=== PATIENT | female | born 1945 | race Caucasian/White ===

== ENCOUNTER 2017-10-10 08:04 | Day surgery (SDC) | payer MEDICARE, MEDICAID ==
[~2017-10-10 08:04] MED LIST: BUPIVACAINE HCL 0.75% INJ/PF (7.5 MG/1 ML) 10 ML SDV OD PRN; KETOROLAC TROMETHAMINE 0.45% 4 DROP/0.4 ML DROPERETTE OD PRN; LIDOCAINE 4% INJ/PF (40 MG/ML) 5 ML AMPUL OD PRN
[2017-10-10] MEDS ORDERED: EPINEPHRINE INJ/PF 1 MG/1 ML AMPULE ONE (08:23)
[2017-10-10] MEDS ORDERED: CHONDR SU A NA/HYALUR INTRAOC KIT (SURGICARE) ONE (08:23)
[2017-10-10] MEDS: TROPICAMIDE 1% OPH SOLN 3 ML OD PRN ×3 (08:26→08:55)
[2017-10-10] MEDS: CYCLOPENTOLATE 0.2%/PHENYLEPHRINE 1% OPH SOLN 2 ML OD PRN ×3 (08:26→08:55)
[2017-10-10] MEDS: BESIFLOXACIN HCL 0.6% OPH SUSP 5 ML BOTTLE OD PRN ×4 (08:27→09:44)
[2017-10-10] MEDS: TETRACAINE HCL 0.5% OPH SOLN 0.6 ML DROPERETTE OD PRN ×2 (08:28→09:01)
[2017-10-10] MEDS ORDERED: MIDAZOLAM 2 MG/2 ML INJ ONE (09:09)
[2017-10-10] MEDS ORDERED: FENTANYL CITRATE INJ/PF 100 MCG/2 ML AMPUL ONE (09:09)
[2017-10-10] MEDS ORDERED: ONDANSETRON HCL INJ/PF 4 MG/2 ML SDV ONE (09:09)
--- NOTE | 2017-10-10 10:10 | [facility] OPERATIVE REPORT E ---
[facility] Operative Report NAME: LATOSHA CHAUHAN AGE: 72Y DATE OF SURGERY: 10/10/2017 ROOM: PREOPERATIVE DIAGNOSIS: CATARACT, RIGHT EYE. POSTOPERATIVE DIAGNOSIS: CATARACT, RIGHT EYE. PROCEDURE PERFORMED: Phacoemulsification with posterior chamber intraocular lens, right eye. SURGEON: Jessica Valle MD ANESTHESIA: Topical with MAC. INDICATIONS FOR SURGERY: Difficulty driving. Increased glare. Best corrected visual acuity 20/60. DESCRIPTION OF PROCEDURE: The patient was brought to the operating room and placed on the operative table. Following tetracaine drops, topical anesthesia was administered. This consisted of instrument wipe pledgets soaked in a solution of 4% Xylocaine mixed with 0.75% Marcaine in a 1:2 ratio. A 2 x 1 cm pledget was placed in the superior fornix. A 1 x 1 cm pledget was placed in the inferior fornix. The eye was patched shut for 5 minutes. The patch was removed. The eye was sterilely prepped and draped in the usual manner. Lid speculum was placed in the eye. The pledgets were removed, 4-0 black silk sutures were placed around the superior and the inferior rectus muscles to be used as traction. A conjunctival peritomy was made at the 10 o'clock position. Hemostasis was obtained with bipolar cautery. A posterior limbal groove was created using a crescent knife and dissected anteriorly towards the cornea. A sharp point blade was used to create a paracentesis site at the 2 o'clock position. A 2.4 mm keratome was used to enter the anterior chamber through the groove. Viscoelastic was injected into the anterior chamber. An anterior capsulotomy was performed using Utrata forceps in a capsulorrhexis fashion. Hydrodissection and hydrodelineation were performed. Phacoemulsification was performed in dxmauv-aum-ibrduym technique. A total of 50 seconds of total phaco time was used. Following this, the I/A unit was used to remove residual cortex. Viscoelastic was injected into the capsular bag. Intraocular lens Model [id number], 24.5 diopters, serial number [id number], was placed in the capsular bag. The I/A unit was used to remove residual viscoelastic. The wound was seen to be watertight under high and low pressure, and no sutures were placed. The intraocular lens was well centered. The pressure was adjusted in the eye to normal pressure. The 4-0 black silk sutures and lid speculum were removed. The eye was shielded after Besivance drops were placed. The patient tolerated the procedure well and was sent to the recovery room in good condition. DICTATING PHYSICIAN: JESSICA VALLE M.D. [id number] PHY#: [id number] ID: [id number] JOB#: [id number] ACCT: [id number] cc:JESSICA VALLE M.D. >
--- NOTE | 2017-10-10 10:13 | [facility] DISCHARGE SUMMARY E ---
[facility] Discharge Summary NAME: LATOSHA CHAUHAN AGE: 72Y ADMITTED: 10/10/2017 DISCHARGED: 10/10/2017 HOSPITAL COURSE: The patient is a 72-year-old lady who underwent uneventful cataract extraction with intraocular lens implant, right eye, on 10/10/2017. She will be discharged to home. DISCHARGE INSTRUCTIONS: She is instructed to resume preoperative medications; to take Tylenol as needed for discomfort; to keep her eye shielded; to use Besivance, Durezol and Ilevro at 3:00 p.m. and 8:00 p.m.; and to follow up in my office in 1 day. DICTATING PHYSICIAN: JESSICA VALLE M.D. [id number] PHY#: [id number] ID: [id number] JOB#: [id number] ACCT: [id number] cc:JESSICA VALLE M.D. >
== END 2017-10-10 10:37 | disposition home or self-care (01) ==
LOC: SC 08:04
PROVIDERS: ATTEND Ophthalmology
PROC: 08RJ3JZ Replacement of Right Lens with Synthetic Substitute, Percutaneous Approach (ICD-10-PCS; principal; 2017-10-10 09:30)
DX: H25.811 Combined forms of age-related cataract, right eye (principal); E11.3293 Type 2 diabetes mellitus with mild nonproliferative diabetic retinopathy without macular edema, bilateral; H43.811 Vitreous degeneration, right eye; Z96.1 Presence of intraocular lens; E78.00 Pure hypercholesterolemia, unspecified; I10 Essential (primary) hypertension; E03.9 Hypothyroidism, unspecified; Z87.891 Personal history of nicotine dependence; Z88.6 Allergy status to analgesic agent; Z79.84 Long term (current) use of oral hypoglycemic drugs; Z79.899 Other long term (current) drug therapy; Z79.82 Long term (current) use of aspirin
CPT/HCPCS: 82962; 66984; V2632; J2250; J3490 ×3; A9270; J0171; J3010; J2405; 142

== ENCOUNTER → 2019-10-21 | Outpatient (CLI) | payer MEDICARE, MEDICAID ==
[2019-10-21 15:33] LABS: ABSOLUTE EOSINOPHILS # (AUTO) 0.1 10^3/uL (0.0-0.6); ABSOLUTE LYMPHOCYTES (AUTO) 1.2 10^3/uL (0.5-4.7); ABSOLUTE MONOCYTES (AUTO) 1.5 10^3/uL (0.1-1.4); ABSOLUTE NEUT (AUTO) 9.8 10^3/uL (1.7-8.2); BASOPHILS % (AUTO) 0.3 % (0-2); EOSINOPHILS % (AUTO) 0.4 % (0-6); HEMATOCRIT 32.5 % (36.0-47.0); HEMOGLOBIN 10.9 g/dL (12.0-15.5); LYMPHOCYTES % (AUTO) 9.6 % (13-45); MEAN CORPUSCULAR HEMOGLOBIN 31.8 pg (27.0-33.4); MEAN CORPUSCULAR HGB CONC 33.6 g/dL (32.0-36.0); MEAN CORPUSCULAR VOLUME 95 fl (80-97); MONOCYTES % (AUTO) 11.5 % (3-13); PLATELET COUNT 259 10^3/uL (150-450); RED BLOOD COUNT 3.44 10^6/uL (3.72-5.28); RED CELL DISTRIBUTION WIDTH 12.6 % (11.5-14.0); SEGMENTED NEUTROPHILS % (AUTO) 78.2 % (42-78); TOTAL CELLS COUNTED % (AUTO) 100 %; WHITE BLOOD COUNT 12.6 10^3/uL (4.0-10.5)
[2019-10-21 15:45] LABS: ALBUMIN 4.1 g/dL (3.5-5.0); ALKALINE PHOSPHATASE 91 U/L (38-126); ANION GAP 12 (5-19); ASPARTATE AMINO TRANSFERASE 28 U/L (14-36); BILIRUBIN,DIRECT 0.3 mg/dL (0.0-0.4); BILIRUBIN,TOTAL 0.7 mg/dL (0.2-1.3); BLOOD UREA NITROGEN 30 mg/dL (7-20); CALCIUM 9.7 mg/dL (8.4-10.2); CARBON DIOXIDE 24 mmol/L (22-30); CHLORIDE 99 mmol/L (98-107); GLUCOSE 145 mg/dL (75-110); TOTAL PROTEIN 7.1 g/dL (6.3-8.2)
--- NOTE | 2019-10-21 17:19 | RADIOLOGY REPORT (SQ) ---
EXAM DESCRIPTION: CHEST PA/LATERAL COMPLETED DATE/TIME: 10/21/2019 3:49 pm REASON FOR STUDY: FEVER, UNSPECIFIED COMPARISON: None. EXAM PARAMETERS: NUMBER OF VIEWS: two views TECHNIQUE: Digital Frontal and Lateral radiographic views of the chest acquired. RADIATION DOSE: NA LIMITATIONS: none FINDINGS: LUNGS AND PLEURA: Ill-defined left basilar retrocardiac opacities. No dense consolidation . Chronic additional interstitial changes. No pleural effusion or pneumothorax. MEDIASTINUM AND HILAR STRUCTURES: No masses or contour abnormalities. HEART AND VASCULAR STRUCTURES: Normal heart size. Aortic atherosclerosis. BONES: No acute findings. HARDWARE: None in the chest. OTHER: No other significant finding. IMPRESSION: Ill-defined left basilar opacities, possibly pneumonia. No dense consolidation. No sig nificant effusion. TECHNICAL DOCUMENTATION: JOB ID: [id number] 2010 [employer]- All Rights Reserved Reading location - IP/workstation name: [email or web address]
--- NOTE | 2019-10-21 17:45 | RADIOLOGY REPORT (SQ) ---
EXAM DESCRIPTION: C SP 4 OR 5 VIEWS COMPLETED DATE/TIME: 10/21/2019 3:49 pm REASON FOR STUDY: CERVICALGIA R50.9 FEVER, UNSPECIFIED M54.2 CERVICALGIA COMPARISON: None. NUMBER OF VIEWS: Five views including obliques. TECHNIQUE: AP, lateral, obliques and odontoid radiographic images acquired of the cervical spine. LIMITATIONS: None. FINDINGS: MINERALIZATION: Osteopenia. ALIGNMENT: Mild C4-5 degenerative anterolisthesis. VERTEBRAE: Maintained height. No fracture or worrisome bone lesion. DISCS: Marked disc space narrowing with sclerosis and osteophytes at C5-6 and C6-7. POSTERIOR ELEMENTS: Facet arthropathy, sclerosis and narrowing. Most notable at C2-3 and C4-5. FORAMINA: C5-6 foraminal narrowing bilaterally. HARDWARE: None in the spine. PARASPINAL SOFT TISSUES: Normal. OTHER: No other significant finding. IMPRESSION: SPONDYLOSIS WITHOUT BONE LESION OR FRACTURE. TECHNICAL DOCUMENTATION: JOB ID: [id number] 2010 [employer]- All Rights Reserved Reading location - IP/workstation name: [email or web address]
== END ==
LOC: OD 14:10
PROVIDERS: ATTEND Family Medicine
DX: M54.2 Cervicalgia (principal); M47.892 Other spondylosis, cervical region; R50.9 Fever, unspecified
CPT/HCPCS: 36415; 71046; 72050; 80053; 85025; 87040